=== PATIENT | female | born 1955 ===

== ENCOUNTER 2018-07-22 19:12 | Emergency (ER) | payer SELFPAY ==
[~2018-07-22] VITALS: Ht 149.9 cm; Wt 44.0 kg
[2018-07-22 19:22] VITALS: Ht 149.9 cm; Wt 44.0 kg
[2018-07-22 20:24] LABS: BASOPHIL % 0.8 % (0-2); PLATELET COUNT 173 x10^3mcL (130-400); RED CELL DISTRIBUTION WIDTH 13.7 % (11.5-14.5)
[2018-07-22 20:33] LABS: ALBUMIN 4.3 g/dL (3.4-5.0); ALKALINE PHOSPHATASE 113 U/L (46-116); ALT/SGPT 39 U/L (14-59); AST/SGOT 51 U/L (15-37); BILIRUBIN TOTAL 0.5 mg/dL (0.20-1.00); CALCIUM 8.7 mg/dL (8.5-10.1); CHLORIDE SERUM 104 mmol/L (98-107); CREATININE SERUM 0.7 mg/dL (0.6-1.0); GFR1 > 60 mL/min; GLUCOSE SERUM 92 mg/dL (74-106); POTASSIUM SERUM 3.6 mmol/L (3.5-5.1); SODIUM SERUM 143 mmol/L (136-145)
[2018-07-22 20:34] LABS: TOTAL PROTEIN, SERUM 8.7 g/dL (6.4-8.2)
[2018-07-22 22:10] LABS: UA SPECIFIC GRAVITY <=1.005 (1.005-1.035); microscopic required? YES; urine erythrocyte NEGATIVE (NEGATIVE)
[2018-07-23 02:06] VITALS: BP 106/65
== END 2018-07-23 02:06 | disposition home or self-care (01) ==
LOC: ED 19:12
PROVIDERS: Emergency Medicine
DX: N39.0 Urinary tract infection, site not specified (principal); Z91.013 Allergy to seafood
CPT/HCPCS: J1885; J7030